=== PATIENT | male | born 1985 | race African-American/Black ===

== ENCOUNTER 2018-07-04 19:39 | Emergency (ER) | payer OTHER ==
[~2018-07-04] VITALS: Ht 177.8 cm; Wt 63.5 kg
== END 2018-07-04 20:49 | disposition home or self-care (01) ==
LOC: ER 19:39 → FSED 20:49
DX: K02.9 Dental caries, unspecified (principal)
CPT/HCPCS: 99282

== ENCOUNTER 2019-01-07 19:52 | Emergency (ER) | payer OTHER ==
[~2019-01-07] VITALS: Ht 177.8 cm; Wt 71.7 kg
== END 2019-01-07 21:17 | disposition home or self-care (01) ==
LOC: FSED 19:52
DX: G43.019 Migraine without aura, intractable, without status migrainosus (principal)
CPT/HCPCS: 99282

== ENCOUNTER 2019-11-13 18:37 | Emergency (ER) | payer OTHER ==
[~2019-11-13] VITALS: Ht 177.8 cm; Wt 67.1 kg
--- OUTSIDE RECORDS SUMMARY | 2019-11-13 18:39 | XMS REPORT ---
Author Author [facility] Organization [facility] Address [address] [place] [address] Phone Unavailable Care Team Providers Care Production Superintendent Name Role Phone NO, PCP PCP Unavailable Payers Payer Name Policy Type Policy Number Effective Date Expiration Date Susi Ramos o [id number] [facility] Problems This patient has no known problems. Allergies, Adverse Reactions, Alerts Allergy Name Allergy Type Status Severity Reaction(s) Onset Date Inacti ve Date Treating Clinician Comments Source CODIENE Allergy to Substance Active Unknown 2018-07-04 00:00:00 [facility] Medications This patient has no known medications. Procedures This patient has no known procedures. Encounters Start Date/Time End Date/Time Encounter Type Admission Type Attendi [facility] Care Department Encounter ID Source 2019-01-07 19:52:00 2019-01-07 21:17:00 Departed Emergency Room [facility] [id number] [facility] 2018-07-04 19:39:00 2018-07-04 20:49:00 Departed Emergency Room [facility] [id number] [facility] Results This patient has no known results.
[2019-11-13] MEDS ORDERED: ULTRAM 50MG50 MG PO (19:17)
[2019-11-13 19:27] VITALS: BP 138/88
--- NOTE | 2019-12-05 16:32 | Emergency Department Note ---
History of Present Illnes History of Present Illness Chief Complaint: Head/Face Trauma History of Present Illness This is a 34 year old male with chief complaint of headache . Historian: Patient Arrival Mode: Car Onset (how long ago): day(s) (1) Location: headache Quality: dull Radiation: non-radiation, back, neck, extremity, abdomen, periumbilical, flank, proximal, distal, other Severity: moderate Onset quality: gradual Duration (how long): day(s) (1) Timing of current episode: intermittent Progression: waxing and waning Chronicity: new Context: recent illness, recent surgery, recent immobilization, recent travel, trauma/injury, new medications, hx of DVT/PE, non-compliance w/ medications, other Relieving factors: none Exacerbating factors: none Associated symptoms: denies other symptoms Treatments prior to arrival: none Past Medical/Family History Physician Review I have reviewed the patient's past medical and family history. Any updates have been documented here. Past Medical History Recent Fever: No Clinical Suspicion of Infectio: No New/Unexplained Change in Ment: No Past Medical History: Migraines Past Surgical History: None Social History Smoking Cessation: Current some day smoker Counseling Performed: No Alcohol Use: Occasional Any Illegal Drug Use: No TB Exposure/Symptoms: No Physically hurt or threatened: No Family History Family history of heart diseas: No Other Last Tetanus: unkown Any Pre-Existing Lines (PICC,: No Is patient up to date on immun: Yes Last Flu: UNK Last Pneumovax: UNK Review of Systems Review of Systems Constitutional: as per HPI EENTM: as per HPI Cardiovascular: no symptoms Respiratory: no symptoms Gastrointestinal: no symptoms Genitourinary: no symptoms Musculoskeletal: no symptoms Neurological: no symptoms Psychological: no symptoms Endocrine: no symptoms Hematological/Lymphatic: no symptoms Review of other systems All other systems reviewed and negative. Physical Exam Related Data Allergies: Uncoded Allergies: CODIENE (Allergy, Unknown, 07/04/18) Triage Vital Signs Vital Signs Date Time Temp Pulse Resp B/P (MAP) Pulse Ox O2 Delivery O2 Flow Rate FiO2 11/13/19 19:01 98.2 112 18 138/88 100 Vital signs reviewed: Yes Physical Exam CONSTITUTIONAL Constitutional: well-developed, well-nourished HENT HENT: normocephalic, atraumatic, oropharynx clear/moist, nose normal HENT L/R: left ext ear normal, right ext ear normal EYES Eyes: PERRL, conjunctivae normal NECK Neck: ROM normal PULMONARY Pulmonary: effort normal, breath sounds normal CARDIOVASCULAR Cardiovascular: regular rhythm, heart sounds normal, capillary refill normal, normal rate GASTROINTESTINAL Abdominal: soft, nontender, bowel sounds normal GENITOURINARY Genitourinary: exam deferred SKIN Skin: warm, dry MUSCULOSKELETAL Musculoskeletal: ROM normal NEUROLOGICAL Neurological: alert, oriented x 3, no gross motor or sensory deficits PSYCHOLOGICAL Psychological: mood/affect normal, judgement normal Critical Care Time Subsequent provider I assumed direction of critical care for this patient from another provider of my specialty. Assessment & Plan Assessment & Plan Final Impression: (1) MIGRAINE W/O AURA, INTRACTABLE, WITHOUT STATUS MIGRAINOSUS Assessment & Plan ultram Depart Disposition: HOME, SELF-CARE Last Vital Signs Date Time Temp Pulse Resp B/P (MAP) Pulse Ox O2 Delivery O2 Flow Rate FiO2 11/13/19 19:27 112 18 100 11/13/19 19:01 98.2 138/88 Home Meds Active Scripts Tramadol Hcl* (ULTRAM 50MG*) 50 Mg Tab, 50 MG PO BID PRN for PAIN, #20 TAB 0 Refills Prov:KANDIS MALONE MD 11/13/19 KANDIS MALONE MD Dec 05, 2019 16:32
== END 2019-11-13 19:27 | disposition home or self-care (01) ==
LOC: FSED 18:37
DX: G43.019 Migraine without aura, intractable, without status migrainosus (principal); F17.210 Nicotine dependence, cigarettes, uncomplicated
CPT/HCPCS: 99282

== ENCOUNTER 2020-01-05 18:29 | Emergency (ER) | payer OTHER ==
[~2020-01-05] VITALS: Ht 177.8 cm; Wt 71.7 kg
[~2020-01-05 18:29] MED LIST: ULTRAM 50MG50 MG PO
[2020-01-05] MEDS ORDERED: ONDANSETRON ODT8 MG PO ×2 (20:28→20:31)
[2020-01-05] MEDS ORDERED: ONDANSETRON HCL 4 MG ORAL DISINTEGRATING TAB ONE (20:28)
[2020-01-05] MEDS ORDERED: ULTRAM50 MG PO (20:30)
[2020-01-05] MEDS ORDERED: ONDANSETRON HCL 4 MG ORAL DISINTEGRATING TAB PO ONE (20:30)
--- OUTSIDE RECORDS SUMMARY | 2020-01-31 06:53 | XMS REPORT | Continuity of Care Document ---
Author Author [facility] Organization [facility] Address [address] [place] [address] Phone Unavailable Care Team Providers Care Human Resources District Manager Name Role Phone NO, PCP PCP Unavailable Payers Payer Name Policy Type Policy Number Effective Date Expiration Date Susi Ramos o [id number] 2019 00:00:00 2020 00:0 0:00 [facility] Problems This patient has no known problems. Allergies, Adverse Reactions, Alerts Allergy Name Allergy Type Status Severity Reaction(s) Onset Date Inacti ve Date Treating Clinician Comments Source CODIENE Allergy to substance Active 2018-07-04 00:00:00 [facility] Social History Social Habit Start Date Stop Date Quantity Comments Source Sex Assigned At 1985 00:00:00 1985 00:00:00 Male [facility] Medications Ordered Medication Name Filled Medication Name Start Date Stop Da te Current Medication? Ordering Clinician Indication Dosage Frequency Signature (SIG) Comments Components Source Ondansetron (Ondansetron Odt) 8 Mg TAB.RAPDIS Ondanset theresa (Ondansetron Odt) 8 Mg TAB.RAPDIS 2020-01-05 20:31:00 Yes 4 Every 6 Hours as needed for Pain [facility] Tramadol Hcl (Ultram) 50 Mg TABLET Tramadol Hcl (Ultram) 50 Mg TABLET 2020-01-05 20:30:00 Yes Every 6 Hours [facility] Ondansetron (Ondansetron Odt) 8 Mg TAB.RAPDIS Ondanset theresa (Ondansetron Odt) 8 Mg TAB.RAPDIS 2020-01-05 20:28:00 2020-01-05 00:00:00 No 4 Every 6 Hours as needed for Pain [facility] Tramadol Hcl (Ultram 50MG*) 50 Mg TAB Tramadol Hcl (Ultram 5 0MG*) 50 Mg TAB 2019-11-13 19:17:00 Yes 50 Twice A Day as nee ded for Pain [facility] Vital Signs Vital Name Observation Time Observation Value Comments Source Weight 2020-01-05 19:19:00 158 [lb_av] [facility] BMI (Body Mass Index) 2020-01-05 19:19:00 22.7 kg/m2 [facility] Body Temperature 2019-11-13 19:27:00 98.2 [degF] [facility] Weight 2019-11-13 19:01:00 148 [lb_av] [facility] BMI (Body Mass Index) 2019-11-13 19:01:00 21.2 kg/m2 [facility] Procedures This patient has no known procedures. Plan of Care Planned Activity Planned Date Details Comments Source Instructions Headache [facility] Instructions Headache - Migraine (Pediatric) [facility] Encounters Start Date/Time End Date/Time Encounter Type Admission Type Attendi [facility] Facility Care Department Encounter ID Source 2020-01-05 18:29:00 2020-01-05 18:29:00 Registered Emergency Room [facility] [id number] [facility] 2019-11-13 18:37:00 2019-11-13 19:27:00 Departed Emergency Room [facility] [id number] [facility] 2019-01-07 19:52:00 2019-01-07 21:17:00 Departed Emergency Room [facility] [id number] [facility] 2018-07-04 19:39:00 2018-07-04 20:49:00 Departed Emergency Room [facility] [id number] [facility] Results This patient has no known results.
--- NOTE | 2020-03-07 16:02 | Emergency Department Note ---
History of Present Illnes History of Present Illness Chief Complaint: Headache History of Present Illness This is a 34 year old male, with a history of chronic migraine headaches for the past 8 years. He said his current headache for the past 2 days, has taken [id number] medication without relief of his symptoms. Patient states that he has had previous neuro imaging of his brain, and this current headache is similar to previous headaches. He's had some associated nausea but no vomiting. He denies any tingling, numbness, focal weakness, dizziness, or visual changes. His primary complaint is nausea and generalized, throbbing headache. He denies any fever, chills, cough, or upper respiratory symptoms. Patient was previously seen here on 11/13/2019 and prescribed Tramadol for his headaches. Patient states that this medication was effective, but he has since run out. He states that he has no antiemetics at home. Historian: Patient Arrival Mode: Car Clinical Trial Coordinator Required: No Onset (how long ago): day(s) (2) Location: head Quality: throbbing Radiation: Reports non-radiation Severity: moderate Onset quality: sudden Duration (how long): day(s) (2) Timing of current episode: constant Progression: unchanged Chronicity: recurrent Context: Denies recent illness, Denies recent travel, Denies trauma/injury Relieving factors: none Exacerbating factors: none Associated symptoms: Reports headaches, Reports nausea/vomiting (without vomiting); Denies confusion, Denies chest pain, Denies cough, Denies fever/chills, Denies malaise, Denies rash, Denies shortness of breath, Denies syncope, Denies weakness Treatments prior to arrival: other (OTC meds;) Risk factors: Historyof chronic migraines; Past Medical/Family History Physician Review I have reviewed the patient's past medical and family history. Any updates have been documented here. Past Medical History Recent Fever: No Clinical Suspicion of Infectio: No New/Unexplained Change in Ment: No Past Medical History: Migraines (x 8 years;) Past Surgical History: None Social History Smoking Cessation: Current every day smoker Counseling Performed: Yes Alcohol Use: None Any Illegal Drug Use: No TB Exposure/Symptoms: No Physically hurt or threatened: No Family History Family history of heart diseas: No Other Last Tetanus: unkown Any Pre-Existing Lines (PICC,: No Review of Systems Review of Systems Constitutional: Denies chills, Denies fever, Denies malaise EENTM: Reports no symptoms Cardiovascular: Denies chest pain, Denies palpitations Respiratory: Reports no symptoms; Denies cough, Denies dyspnea, Denies dyspnea on exertion Gastrointestinal: Denies abdominal pain, Denies nausea, Denies vomiting Genitourinary: Denies dysuria, Denies frequency Musculoskeletal: Denies back pain, Denies muscle pain, Denies muscle stiffness, Denies neck pain Integumentary: Denies rash, Denies ecchymosis Neurological: Reports headache; Denies numbness, Denies paresthesia, Denies seizure, Denies tingling, Denies tremors, Denies weakness Psychological: Reports no symptoms Endocrine: Reports no symptoms, Reports other Review of other systems: All other systems negative (.) Physical Exam Related Data Allergies: Uncoded Allergies: CODIENE (Allergy, Unknown, 07/04/18) Vital signs reviewed: Yes Physical Exam CONSTITUTIONAL Constitutional: Present well-developed, Present well-nourished; Absent distressed, Absent ill appearing HENT HENT: Present normocephalic, Present atraumatic, Present oropharynx clear/moist, Present nose normal; Absent nasal congestion, Absent rhinorrhea HENT L/R: Present left ext ear normal, Present right ext ear normal EYES Eyes: Reports PERRL, Reports conjunctivae normal, Reports EOM normal NECK Neck: Present ROM normal, Present supple; Absent cervical adenopathy PULMONARY Pulmonary: Present effort normal, Present breath sounds normal CARDIOVASCULAR Cardiovascular: Present regular rhythm, Present heart sounds normal, Present capillary refill normal, Present normal rate; Absent murmur GASTROINTESTINAL Abdominal: Present soft, Present nontender, Present bowel sounds normal; Absent distension, Absent tender, Absent guarding GENITOURINARY Genitourinary: Present exam deferred SKIN Skin: Present warm, Present dry MUSCULOSKELETAL Musculoskeletal: Present ROM normal; Absent edema, Absent tenderness NEUROLOGICAL Neurological: Present alert, Present oriented x 3, Present no gross motor or sensory deficits; Absent cranial nerve deficit, Absent sensory deficit, Absent abnormal gait, A bsent weakness PSYCHOLOGICAL Psychological: Present mood/affect normal, Present judgement normal Assessment & Plan Medical Decision Making MDM - Patient's nausea improved with the Ondansetron. Since he drove himself to the ED, we were unable to give him anything for the headache here. Pt was pleased to take the Rx to the pharmacy, for the headache pain. MEDICAL UNDERWRITER aware webiste queried. - Patient advised to take medications as directed, and follow-up with his primary care physician, if symptoms persist, for consideration of a daily, prophylactic medication and/or referral to neurology, for management of his chronic headaches. He is strongly encouraged to keep a headache diary to take with him to the appointment. Pt voiced understanding of the plan. - Encourage vigorous hydration; - Return to the ED, if your symptoms worsen; Assessment & Plan Final Impression: (1) MIGRAINE W/O AURA, INTRACTABLE, WITHOUT STATUS MIGRAINOSUS (2) Nausea Depart Disposition: HOME, SELF-nursing home Meds Active Scripts Ondansetron (ONDANSETRON ODT) 8 Mg Tab.rapdis, 4 MG PO Q6H PRN for pain, #20 TAB 0 Refills Prov:CHRISS LEONARDO MD 01/05/20 Tramadol Hcl (ULTRAM) 50 Mg Tablet, 1-2 TAB PO Q6H, #15 TAB 0 Refills Prov:CHRISS LEONARDO MD 01/05/20 Tramadol Hcl* (ULTRAM 50MG*) 50 Mg Tab, 50 MG PO BID PRN for PAIN, #20 TAB 0 Refills Prov:KANDIS MALONE MD 11/13/19 CHRISS LEONARDO MD Mar 07, 2020 16:02
== END 2020-01-05 20:40 | disposition home or self-care (01) ==
LOC: FSED 18:29
DX: G43.009 Migraine without aura, not intractable, without status migrainosus (principal); F17.210 Nicotine dependence, cigarettes, uncomplicated
CPT/HCPCS: 99283; Q0162